=== PATIENT | female | born 1945 | race Caucasian/White ===

== ENCOUNTER → 2024-01-09 12:29 | Outpatient (REF) | payer MEDICARE, SELFPAY | LOC: WDC 12:29 | PROVIDERS: ATTENDING PHYSICIAN Family Medicine | DX: Z12.31 Encounter for screening mammogram for malignant neoplasm of breast (principal) | CPT/HCPCS: 73110; 77063; 77067 ==

== ENCOUNTER → 2025-01-14 13:45 | Outpatient (REF) | payer MEDICARE, SELFPAY | LOC: WDC 13:45 | PROVIDERS: ATTENDING PHYSICIAN Family Medicine | DX: Z78.0 Asymptomatic menopausal state (principal); N95.8 Other specified menopausal and perimenopausal disorders; Z12.31 Encounter for screening mammogram for malignant neoplasm of breast | CPT/HCPCS: 77063; 77067 ==